=== PATIENT | female | born 1990 | race Caucasian/White ===

== ENCOUNTER → 2018-01-24 | Outpatient (CLI) | payer OTHER ==
[2018-01-24 10:30] LABS: Basophils % (A) 1 %; Eosinophils # (A) 0.2 k/uL (0-0.7); Eosinophils % (A) 3 %; HCT 40.1 % (34.0-46.0); Lymphocytes # (A) 1.9 k/uL (1.0-4.8); Lymphocytes % (A) 39 %; MCH 30.7 pg (25.0-35.0); MCHC 32.5 g/dL (31.0-37.0); MCV 94.5 fL (80.0-100.0); Mean Platelet Volume 7.4; Monocytes # (A) 0.3 k/uL (0-1.0); Monocytes % (A) 7 %; Neutrophils # (A) 2.3 k/uL (1.3-7.7); Neutrophils % (A) 47 %; Platelet Count 211 k/uL (150-450); RBC 4.24 m/uL (3.80-5.40); RDW 12.2 % (11.5-15.5); WBC 4.8 k/uL (3.8-10.6)
== END | disposition home or self-care (01) ==
LOC: LABPAT 09:30
PROVIDERS: ATTEND Obstetrics & Gynecology
DX: Z01.812 Encounter for preprocedural laboratory examination (principal)
CPT/HCPCS: 36415; 85025

== ENCOUNTER 2018-01-25 10:47 | Day surgery (SDC) | payer OTHER ==
[2018-01-22 12:49] VITALS: BMI 22.6
--- NOTE | 2018-01-24 19:40 | P.HPOB ---
History of Present Illness H&P Date: 01/24/18 Chief Complaint: Displaced IUD and left ovarian cyst Ronda is a 27-year-old female with a Mirena IUD that appears misplaced on ultrasound. She is been present for a routine gynecologic visit where the IUD was supposed to be removed but we could not visualize strings therefore an ultrasound was ordered also opening ultrasound was noted that she has a 6.7 x 3.7 x 5.9 left ovarian cyst. Cyst appeared simple and has not really caused her any symptoms. We will evaluate that at time of laparoscopy as we do verify no serosal piercing of the IUD. No other complaints or problems she has not had pain or other issues with her IUD but she is scheduled for a diagnostic laparoscopy with removal of IUD and hysteroscopy. Risks/benefits/alternatives to this procedure were discussed with the patient in detail and all questions were answered for the patient prior to proceeding to the operating room. Past Medical History Past Medical History: No Reported History History of Any Multi-Drug Resistant Organisms: None Reported Past Surgical History: Hernia Repair Additional Past Surgical History / Comment(s): Growth plate removal right lower extremity. Past Anesthesia/Blood Transfusion Reactions: No Reported Reaction Past Psychological History: No Psychological Hx Reported Smoking Status: Never smoker Past Alcohol Use History: Rare Past Drug Use History: None Reported - Past Family History Father Family Medical History: Myocardial Infarction ([place]) Medications and Allergies Home Medications Medication Instructions Recorded Confirmed Type No Known Home Medications 01/22/18 01/22/18 History Allergies Allergy/AdvReac Type Severity Reaction Status Date / Time No Known Allergies Allergy Verified 01/22/18 12:38 Exam Osteopathic Statement: *. No significant issues noted on an osteopathic structural exam other than those noted in the History and Physical/Consult. - OBG Physical Exam Breast: both: normal (no masses) Abdomen: bowel sounds normal, no diffuse tenderness, no bruit present, no guarding noted, no hepatomegaly, no splenomegaly, no mass Vulva: both: normal Vagina: normal moisture, no discharge Cervix: no lesion, no discharge Uterus: normal size, normal contour Adnexa: both: normal Anus/Rectum: normal perianal skin, no rectal mass, no hemorrhoids, heme negative
[~2018-01-25 10:47] MED LIST: DEXAMETHASONE SOD PHOSPHATE 10 MG/ML 1 ML VIAL IV ONE; HYDROmorphone 0.5 MG/0.5 ML SYRINGE IVP PRN; MIDAZOLAM (PF) 2 MG/2 ML VIAL IV PRN; ONDANSETRON 4 MG/2 ML VIAL IVP ONE; Pre Op ABX Message 1 EACH MISC MISCELLANE ONE; SCOPOLAMINE 1.5MG/72HR PATCH TRANSDERM ONE
[2018-01-25] MEDS ORDERED: LACTATED RINGERS 1,000 ML IV ONE (11:04)
[2018-01-25] MEDS ORDERED: LIDOCAINE 1% 20 ML VIAL (10MG/ML) FOR IV START INTRADERMA ONE (11:04)
[2018-01-25] MEDS ORDERED: BUPIVACAINE (PF) 0.25% 30 ML VIAL SQ ONE ×2 (11:59→12:51)
[2018-01-25] MEDS ORDERED: KETOROLAC 30 MG/ML 1 ML VIAL ONE (12:29)
[2018-01-25] MEDS ORDERED: PROPOFOL 10 MG/ML 20 ML VIAL IV ONE (12:29)
[2018-01-25] MEDS ORDERED: LIDOCAINE 1% INJ 10MG/ML (20 ML MDV) ONE (12:29)
[2018-01-25] MEDS ORDERED: MIDAZOLAM 2 MG/2 ML VIAL ONE (12:29)
[2018-01-25] MEDS ORDERED: fentaNYL (PF) 50 MCG/ML 2 ML AMP ONE (12:29)
[2018-01-25] MEDS ORDERED: SUCCINYLCHOLINE CHLORIDE 100 MG/5 ML SYR IV ONE (12:29)
[2018-01-25] MEDS: LACTATED RINGERS 1,000 ML IV SCH ×2 (12:34→12:37)
[2018-01-25 13:29] VITALS: RESP 16; TEMP 97.2
--- NOTE | 2018-01-25 13:36 | P.OP ---
Date of Procedure: 01/25/18 Preoperative Diagnosis: Retained IUD and ovarian cyst Postoperative Diagnosis: Same with adhesion Procedure(s) Performed: Diagnostic laparoscopy and removal of IUD with lysis of adhesion Anesthesia: LAUREANO Surgeon: Yan Brasher Estimated Blood Loss (ml): 3 IV fluids (ml): 60 Pathology: none sent Condition: stable Disposition: same day Operative Findings: Perforation of the uterus on the left fundal region with an adhesion of omentum Description of Procedure: Patient was taken to the operating suite where a general anesthetic was found be adequate. She was prepped and draped in the normal sterile fashion and placed in dorsal lithotomy position. Initially a speculum was inserted into the vagina and the anterior lip of the cervix was identified with a single- tooth tenaculum. A [place] grasper was then used to enter the uterus and IUD was grasped and removed without difficulty. Once this was accomplished a uterine manipulator was inserted without difficulty and other instruments removed. Red rubber catheter was then used to drain the bladder of urine. Gloves were then changed and attention was turned to abdominal portion of the procedure were 2 mL of quarter percent Marcaine was injected periumbilically. Through this injected anesthetic a 5 mm skin incision was made and through this incision under direct visualization with an optical trocar and sleeve the camera was inserted. Once peritoneal placement was assured gas left fully insufflate the abdomen and a second 5 mm skin incision was made 3 cm above the pubic symphysis in the midline. Through this incision a second port and sleeve were inserted. Observations Marsing noted. Right ovary and left ovary was identified and no large cysts were noted. Therefore noting a omental adhesion attached the anterior portion of the fundal region on the left side of the uterus it was grasped and bluntly dissected free. No bleeding is noted from this area and no bleeding was noted from the vagina. Therefore all instruments were removed and gas was allowed to expel from the abdomen. 5 deep breaths were provided during this process. 4-0 Vicryl was then used to close the incision subcuticularly and the manipulator was inserted and taped out of the vagina following installation of 6 more cc of quarter percent Marcaine around the incisions. Sponge, lap, needle counts were all correct 2. Patient was then taken to the recovery room in stable and satisfactory condition. Plan - Discharge Summary New Discharge Prescriptions: New HYDROcodone/APAP 5-325MG [Freedom 5-325] 1 tab PO Q4HR PRN #30 tab PRN Reason: Pain Ibuprofen [Motrin] 600 mg PO Q6HR PRN #30 tab PRN Reason: Pain Discharge Medication List HYDROcodone/APAP 5-325MG [Freedom 5-325] 1 tab PO Q4HR PRN #30 tab 01/25/18 [Rx] Ibuprofen [Motrin] 600 mg PO Q6HR PRN #30 tab 01/25/18 [Rx] Follow up Appointment(s)/Referral(s): Yan Brasher DO [Doctor of Osteopathic Medicine] - 2 Weeks Activity/Diet/Wound Care/Special Instructions: No heavy lifting, limit stairs and driving, and pelvic rest. If any high temperatures, heavy bleeding, or severe pain call my office Discharge Disposition: HOME SELF-CARE
[2018-01-25 15:07] VITALS: BP 94/59; PULSE 62
== END 2018-01-25 15:32 | disposition home or self-care (01) ==
LOC: OR 10:47
PROVIDERS: ATTEND Obstetrics & Gynecology
DX: T83.39XA Other mechanical complication of intrauterine contraceptive device, initial encounter (principal); T83.32XA Displacement of intrauterine contraceptive device, initial encounter; N73.6 Female pelvic peritoneal adhesions (postinfective)
CPT/HCPCS: 84703; 58301; 58662; J2250; J1100; J2405; J2001; J3010; J1885; J0330; J2704